=== PATIENT | female | born 1980 | race Hispanic/Latino ===

== ENCOUNTER 2017-01-27 13:37 | Emergency (ER) | payer SELFPAY ==
[2017-01-27 16:45] LABS: Bilirubin Negative (Negative); Blood, Urine Trace (Negative); Glucose, Urine (Dipstick) Negative (Negative); Ketone, Urine Negative (Negative); Nitrite Negative (Negative); Protein, Urine (Dipstick) Negative (Neg-Trace); Urobilinogen 0.2 mg/dL (0.2-1.0)
[2017-01-27 16:48] LABS: Bacteria/HPF Rare-Few HPF (None Seen); Hyaline Casts/LPF 0-3 HYALINE CAST LPF (0-3 Hyaline); RBC/HPF 0-3 HPF (0-3); Squamous Epithelial 0-3 HPF (0-3); WBC/HPF 0-3 HPF (0-3)
[2017-01-27] MEDS ORDERED: Metoclopramide HCl 10 MG/2 ML VIAL ONE (17:00)
[2017-01-27] MEDS ORDERED: Ketorolac Tromethamine 30 MG/ML VIAL ONE (17:00)
[2017-01-27] MEDS ORDERED: diphenhydrAMINE 50 MG/ML VIAL ONE (17:00)
[2017-01-27] MEDS ORDERED: Ondansetron HCl/PF 4 MG/2 ML Vial ONE (17:13)
== END 2017-01-27 19:30 | disposition home or self-care (01) ==
LOC: ERS 13:37 → EEVIPCON 13:37 → ERS 19:30
DX: R51 Headache (principal); G43.909 Migraine, unspecified, not intractable, without status migrainosus
CPT/HCPCS: 81003; 81015; 81025; 96365; 96366; 96375; J1200; J1885; J2405; J2765

== ENCOUNTER 2017-02-28 15:15 | Emergency (ER) | payer SELFPAY | END 2017-02-28 16:55 | disposition home or self-care (01) | LOC: ERS 15:15 | DX: J01.90 Acute sinusitis, unspecified (principal); B96.89 Other specified bacterial agents as the cause of diseases classified elsewhere; G43.909 Migraine, unspecified, not intractable, without status migrainosus; F32.9 Major depressive disorder, single episode, unspecified | CPT/HCPCS: 99283 ==

== ENCOUNTER 2017-11-28 10:14 | Emergency (ER) | payer SELFPAY | END 2017-11-28 11:49 | disposition home or self-care (01) | LOC: ERS 10:14 | DX: J06.9 Acute upper respiratory infection, unspecified (principal); J02.9 Acute pharyngitis, unspecified; R05 Cough; G43.909 Migraine, unspecified, not intractable, without status migrainosus; F32.9 Major depressive disorder, single episode, unspecified | CPT/HCPCS: 99283 ==

== ENCOUNTER 2018-01-07 18:28 | Day surgery (SDC) | payer SELFPAY ==
[~2018-01-07 18:28] MED LIST: Dexamethasone 20 MG/5 ML VIAL ONE; Glycopyrrolate 0.2 MG/ML 5 ML SYRINGE ONE; ISOVUE-370 76%-LOCM 1 ML ONE; Lidocaine 1% PF 5 ML VIAL ONE; Ondansetron PF 4 MG/2 ML Vial ONE; PROPOFOL 200 MG/20 ML VIAL ONE; Succinylcholine Chloride 20 MG/ML 10 ml SYRINGE FS ONE
[2018-01-07 19:08] LABS: #Basophils 0.1 thou/uL (0.0-0.2); #Eosinphils 0.1 thou/uL (0.0-0.7); #Lymphocytes 2.1 thou/uL (1.20-3.40); #Monocytes 0.8 thou/uL (0.11-0.59); #Neutrophils 12.8 thou/uL (1.40-6.50); %Basophils 0.7 % (0.0-1.0); %Eosinophils 0.6 % (0.0-10.0); %Monocytes 5.3 % (0.0-10.0); %Neutrophils 80.4 % (42.0-75.0); Hemoglobin 15.7 g/dL (12.0-16.0); Mean Corpuscular HGB CONC 32.7 g/dL (32.0-36.0); Mean Corpuscular Hemoglobin 28.5 pg (27.0-31.0); Mean Corpuscular Volume 87.1 fL (78.0-98.0); Mean Platelet Volume 9.5 fL (7.4-10.4); Platelet Count 262 thou/uL (130-400); RBC Distribution Width 12.8 % (11.5-14.5); Red Blood Cell (RBC) Count 5.52 mill/uL (4.20-5.40); White Blood Cell (WBC) Count 15.9 thou/uL (4.8-10.8)
[2018-01-07 19:25] LABS: ALT (SGPT) 17 U/L (8-55); AST (SGOT) 21 U/L (5-34); Albumin 4.5 g/dL (3.5-5.0); Alkaline Phosphatase 121 U/L (40-150); Anion Gap 15 mmol/L (10-20); BUN (Urea Nitrogen) 20 mg/dL (7.0-18.7); Bilirubin, Total 0.5 mg/dL (0.2-1.2); Calc. Creatinine Clearance 0 mL/min (70-130); Calcium 10.3 mg/dL (7.8-10.44); Carbon Dioxide 21 mmol/L (22-29); Chloride 100 mmol/L (98-107); Estimated GFR-MDRD 74; Globulin 4.5 g/dL (2.4-3.5); Glucose 88 mg/dL (70-105); Lipase 33 U/L (8-78); Potassium 3.9 mmol/L (3.5-5.1); Sodium 132 mmol/L (136-145)
[2018-01-07 19:27] LABS: Bilirubin Small (Negative); Blood, Urine Negative (Negative); Clarity CLEAR (Clear); Glucose, Urine (Dipstick) Negative (Negative); Leukocyte Trace (Negative); Nitrite Negative (Negative); Protein, Urine (Dipstick) Trace mg/dL (Neg-Trace); Specific Gravity, Urine 1.033 (1.002-1.036); Urobilinogen 0.2 mg/dL (0.2-1.0)
[2018-01-07 19:30] LABS: Bacteria/HPF Rare-Few HPF (None Seen); Hyaline Casts/LPF 4-6 HYALINE CAST LPF (0-3 Hyaline); Pathc Cast-AUWi Flag 1.59 (0-2.49)
[2018-01-07 19:32] LABS: Pregnancy Test - Urine (BHCG) Negative (Negative); Pregu Control Background? CLEAR/WHITE (CLR/WHITE); Pregu Control Bar Appear? YES (CONTROL BAR); Specific Gravity 1.033 (1.002-1.036)
--- NOTE | 2018-01-07 19:40 | ULT ---
GALLBLADDER ULTRASOUND: History: Right upper quadrant pain. FINDINGS: The gallbladder is distended and there is at least one large gallstone in the neck of the gallbladder . There is mild pericholecystic edema. Common duct is normal caliber measuring at 2-3 mm. Right kidney is unremarkable. Pancreas is obscured . The visualized liver unremarkable. IMPRESSION: Cholelithiasis. Large gallstone is lodged in the neck of the gallbladder and there is mild pericholec ystic edema. POS: BRAEDEN
[2018-01-07 19:57] LABS: RBC/HPF 0-3 HPF (0-3)
[2018-01-07] MEDS ORDERED: Bupivacaine HCl 0.5%/Epinephrine 1:200,000/PF 30 ml Vial ONE (20:09)
--- NOTE | 2018-01-07 20:19 | CT ---
CT ABDOMEN AND PELVIS WITH CONTRAST: Technique: Multiple contiguous axial images were obtained through the abdomen and pelvis with IV enha ncement. Indication: Right abdominal pain. FINDINGS: Lung bases are clear. Liver, spleen unremarkable. The gallbladder is distended and there is a densely calcified gallstones in the neck of the gallbladd er. Mild pericholecystic edema. Findings were described on the gallbladder ultrasound from earlier th is evening. The calcified gallstones measures up to 3 cm diameter. No evidence of ductal dilation. Adrenal glands and kidneys unremarkable. Bowel loops unremarkable. Appendix appears normal. Images through the pelvis show unremarkable uterus and adnexa. No adenopathy. IMPRESSION: Large gallstone in the neck of the gallbladder with distended gallbladder and pericholecystic edema c orresponding to the ultrasound findings. POS: BRAEDEN
[2018-01-07] MEDS ORDERED: Fentanyl 100 MCG/2 ML VIAL ONE (20:28)
[2018-01-07] MEDS ORDERED: Midazolam HCl 2 mg/2 ml Vial ONE (20:28)
[2018-01-07] MEDS ORDERED: Levofloxacin 500 mg/D5W 100 ml Premix Bag ONE (20:47)
[2018-01-07] MEDS ORDERED: Ketorolac Tromethamine 30 MG/ML VIAL ONE (20:47)
--- NOTE | 2018-01-07 20:59 | HP ---
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 She is seen by Dr. Oliveira. White count is 15, hemoglobin 15. The liver function tests are normal. Lipase is n ormal. Sodium 132, potassium 3.9. Ultrasound of her gallbladder reveals gallstones, pericholecystic edema 2-3 mm common bile duct. She had a CAT scan of the abdomen and pelvis demonstrating the same. ALLERGIES: None. TOBACCO: None. ALCOHOL: Rarely socially. MEDICATIONS: None routinely. PAST SURGICAL HISTORY: . PAST MEDICAL HISTORY: Noncontributory. REVIEW OF SYSTEMS: Ten point noncontributory. PHYSICAL EXAMINATION: VITAL SIGNS: Heart rate 72, respiratory rate 16, blood pressure 120/64. HEENT: Unremarkable. LUNGS: Clear to auscultation. CARDIAC: Regular rate and rhythm without murmur or gallop. ABDOMEN: Soft, tenderness in right upper quadrant with guarding. EXTREMITIES: Unremarkable. ASSESSMENT AND PLAN: Cholecystitis and cholelithiasis. I have recommended laparoscopic video cholec ystectomy. Risk of infection, bleeding, visceral and biliary injury explained. She consents. [facility] peace answered.
[2018-01-07] MEDS ORDERED: Piperacillin/Tazobactam 3.375 GM VIAL ONE (21:39)
[2018-01-07] MEDS ORDERED: HYDROcodone/Acetaminophen 5/325 mg Tablet ONE (23:10)
--- NOTE | 2018-01-08 04:49 | OP ---
PREOPERATIVE DIAGNOSIS: Acute cholecystitis, cholelithiasis. POSTOPERATIVE DIAGNOSIS: Acute cholecystitis, cholelithiasis. PROCEDURE: Laparoscopic video cholecystectomy. SURGEON: Tavares Barrientos M.D. ANESTHESIA: General. Local 0.5% Marcaine with epinephrine. MANAGER GOLF: Bennie Tariq MS-3 PROCEDURE IN DETAIL: Patient taken to the operating room where under general anesthesia, abdomen was prepared with ChloraPrep, draped in routine fashion. Local anesthetic 0.5% Marcaine with epinephrin e infiltrated into skin and subcutaneous tissue about each port site. Infraumbilical incision made a nd pneumoperitoneum to 15 mmHg obtained with the Veress needle, replacing it with a 5 port and laparo scope inserted. Right subxiphoid incision made and 11 port placed. Right subcostal incision made in the mid clavicular anterior axillary lines and 5 ports placed. Gallbladder wall was thickened and a cutely inflamed. Fundus of the gallbladder grasped at the cephalad. Infundibulum grasped and reflec vasquez laterally. Cystic artery and duct dissected free. Critical view obtained. Cystic artery and du ct doubly clipped proximally, divided, and gallbladder dissected free from the liver bed obtaining go od hemostasis prior to division of final peritoneal attachments. Gallbladder and contents removed an d submitted to Pathology. Good hemostasis ensured with cautery. Surgicel was used. Irrigant and pn eumoperitoneum evacuated. All instruments removed and all skin incisions approximated with interrupt ed subdermal 4-0 Monocryl and DermaGlue applied.
== END 2018-01-07 23:35 | disposition home or self-care (01) ==
LOC: ERS 18:28 → SDC/OP 22:03
PROVIDERS: ATTEND Specialist
PROC: 0FT44ZZ Resection of Gallbladder, Percutaneous Endoscopic Approach (ICD-10-PCS; principal; 2018-01-07)
DX: K80.12 Calculus of gallbladder with acute and chronic cholecystitis without obstruction (principal)
CPT/HCPCS: 36415; 74177; 76705; 80053; 81003; 81015; 81025; 83690; 85025; 88304; 96374; 96375; J0131; J0670; J1100; J1885; J1956; J2001; J2250; J2405; J2543; J2704; J3010

== ENCOUNTER 2018-08-19 17:45 | Emergency (ER) | payer SELFPAY ==
[~2018-08-19 17:45] MED LIST changes: -Dexamethasone 20 MG/5 ML VIAL ONE; -Glycopyrrolate 0.2 MG/ML 5 ML SYRINGE ONE; -Lidocaine 1% PF 5 ML VIAL ONE; -Ondansetron PF 4 MG/2 ML Vial ONE; -PROPOFOL 200 MG/20 ML VIAL ONE; -Succinylcholine Chloride 20 MG/ML 10 ml SYRINGE FS ONE
[2018-08-19 18:52] LABS: #Lymphocytes 0.9 thou/uL (1.20-3.40); #Monocytes 0.4 thou/uL (0.11-0.59); #Neutrophils 6.9 thou/uL (1.40-6.50); %Basophils 0.2 % (0.0-1.0); %Eosinophils 0.2 % (0.0-10.0); %Lymphocytes 11.3 % (21.0-51.0); %Monocytes 4.7 % (0.0-10.0); %Neutrophils 83.6 % (42.0-75.0); Hemoglobin 13.6 g/dL (12.0-16.0); Mean Corpuscular HGB CONC 33.9 g/dL (32.0-36.0); Mean Corpuscular Hemoglobin 29.7 pg (27.0-31.0); Mean Corpuscular Volume 87.7 fL (78.0-98.0); Mean Platelet Volume 8.5 fL (7.4-10.4); Platelet Count 240 thou/uL (130-400); RBC Distribution Width 11.9 % (11.5-14.5); Red Blood Cell (RBC) Count 4.59 mill/uL (4.20-5.40); White Blood Cell (WBC) Count 8.3 thou/uL (4.8-10.8)
[2018-08-19 19:21] LABS: ALT (SGPT) 36 U/L (8-55); AST (SGOT) 42 U/L (5-34); Alkaline Phosphatase 122 U/L (40-150); Anion Gap 16 mmol/L (10-20); BUN (Urea Nitrogen) 17 mg/dL (7.0-18.7); Bilirubin, Total 0.4 mg/dL (0.2-1.2); Calc. Creatinine Clearance 0 mL/min (70-130); Calcium 9.1 mg/dL (7.8-10.44); Carbon Dioxide 18 mmol/L (22-29); Chloride 105 mmol/L (98-107); Estimated GFR-MDRD 80; Globulin 3.7 g/dL (2.4-3.5); Glucose 85 mg/dL (70-105); Protein, Total 7.7 g/dL (6.0-8.3); Sodium 135 mmol/L (136-145)
[2018-08-19 19:40] LABS: Bilirubin Small (Negative); Blood, Urine Large (Negative); Clarity CLOUDY (Clear); Glucose, Urine (Dipstick) Negative (Negative); Leukocyte Moderate (Negative); Nitrite Negative (Negative); Protein, Urine (Dipstick) Negative (Neg-Trace)
[2018-08-19 19:42] LABS: Bacteria/HPF Rare-Few HPF (None Seen); Pregnancy Test - Urine (BHCG) Negative (Negative); Pregu Control Background? CLEAR/WHITE (CLR/WHITE); Pregu Control Bar Appear? YES (CONTROL BAR); Specific Gravity 1.037 (1.002-1.036); Squamous Epithelial 21-50 HPF (0-3)
[2018-08-19 19:43] LABS: Pathc Cast-AUWi Flag 7.61 (0-2.49)
[2018-08-19 19:58] LABS: Hyaline Casts/LPF 0-3 HYALINE CAST LPF (0-3 Hyaline); Other Casts/LPF None Seen LPF (0-3 Hyaline)
--- NOTE | 2018-08-19 20:56 | CT ---
CT Abdomen Pelvis W Con: 08/19/2018 12:00 AM CLINICAL INFORMATION: Suprapubic and right lower quadrant abdominal pain for 2 days COMPARISON: 01/07/2018 TECHNIQUE: Multiple contiguous axial images were obtained and a CT of the abdomen and pelvis with IV contrast. Oral contrast was administered. Coronal reformats were performed. FINDINGS: Lower Chest: within normal limits. Abdomen: Liver: within normal limits. Bile Ducts: Normal caliber. Gallbladder: Absent Pancreas: within normal limits. Spleen: within normal limits. Adrenals: within normal limits. Kidneys: within normal limits. Pelvis: Reproductive Organs: No pelvic masses. Ureters: within normal limits. Bladder: within normal limits. Peritoneum: No free air, no fluid collection. A small amount of free fluid in the pelvis may be physi ologic. Bowel: Normal caliber. Mesentery and Retroperitoneum: No enlarged mesenteric or retroperitoneal lymph nodes. Vessels: Normal. Abdominal Wall: within normal limits. Bones: Within normal limits IMPRESSION: No evidence of acute intraabdominal\pelvic abnormality.
[2018-08-19] MEDS ORDERED: Ketorolac Tromethamine 30 MG/ML VIAL ONE (22:29)
== END 2018-08-19 22:34 | disposition home or self-care (01) ==
LOC: ERS 17:45
DX: R10.30 Lower abdominal pain, unspecified (principal); R11.2 Nausea with vomiting, unspecified; F32.9 Major depressive disorder, single episode, unspecified; E78.5 Hyperlipidemia, unspecified; G43.909 Migraine, unspecified, not intractable, without status migrainosus; Z79.899 Other long term (current) drug therapy
CPT/HCPCS: 36415; 74177; 80053; 81003; 81015; 81025; 85025; 96374; J1885; Q9966

== ENCOUNTER 2019-08-05 05:21 | Emergency (ER) | payer SELFPAY | END 2019-08-05 05:36 | disposition home or self-care (01) | LOC: ERS 05:21 | DX: J02.0 Streptococcal pharyngitis (principal); E78.5 Hyperlipidemia, unspecified; F32.9 Major depressive disorder, single episode, unspecified; Z79.899 Other long term (current) drug therapy | CPT/HCPCS: 99283 ==

== ENCOUNTER 2019-11-09 20:19 | Emergency (ER) | payer OTHER, SELFPAY ==
[2019-11-09] MEDS ORDERED: diphenhydrAMINE 50 MG/ML VIAL ONE (21:40)
[2019-11-09] MEDS ORDERED: Metoclopramide HCl 10 MG/2 ML VIAL ONE (21:40)
[2019-11-09] MEDS ORDERED: Ketorolac Tromethamine 30 MG/ML VIAL ONE (21:40)
== END 2019-11-09 23:29 | disposition home or self-care (01) ==
LOC: ERS 20:19
DX: R51 Headache (principal); E78.5 Hyperlipidemia, unspecified; F32.9 Major depressive disorder, single episode, unspecified; Z79.899 Other long term (current) drug therapy
CPT/HCPCS: 96365; 96375; J1200; J1885; J2765